=== PATIENT | female | born 2000 | race Caucasian/White ===

== ENCOUNTER 2018-03-11 10:05 | Emergency (ER) | payer OTHER ==
[~2018-03-11] VITALS: Ht 162.6 cm; Wt 81.6 kg
[2018-03-11] MEDS ORDERED: LACTATED RINGERS 1,000 ML IV ONE (10:26)
[2018-03-11] MEDS ORDERED: raNItidine 50 MG/2 ML INJ (ZANTAC) IV SCH (10:30)
[2018-03-11 10:35] LABS: BILIRUBIN,URINE NEGATIVE (NEGATIVE); CLARITY,URINE SLIGHTLY CLOUDY; COLOR,URINE YELLOW; GLUCOSE, URINE (UA) NEGATIVE (NEGATIVE); KETONES,URINE NEGATIVE (NEGATIVE); LEUKOCYTE ESTERASE ,URINE 1+ (NEGATIVE); NITRITE,URINE NEGATIVE (NEGATIVE); PH,URINE 8 (5-9); PROTEIN,URINE 1+ (NEGATIVE); UROBILINOGEN,URINE 1 MG/DL (NORMAL)
--- NOTE | 2018-03-11 10:40 | ED Abdominal Pain ---
General Chief Complaint: Abdominal/GI Problems Stated Complaint: VOMITING/STOMACH PAIN Nursing Triage Note: pt reports [place] hx of chronic pancreatitis and thinks she drank too much last night. Pt reports she has been vomiting since she got up this morning. Source of Information: Patient Exam Limitations: No Limitations History of Present Illness Date Seen by Provider: March 11, 2018 Time Seen by Provider: 10:20 Initial Comments Here with report of epigastric abdominal pain after drinking heavily last night. Reports that she has history of chronic pancreatitis. She states that usually that will go away after she vomits but today it's been worse. She does admit that she drink more last night and she has ever. She doesn't usually drink a lot. Denies diarrhea or fevers. Was concerned because she wasn't able to drink fluids today because she keeps vomiting. Timing/Duration: 4-6 Hours Severity/Quality: Moderate Location: Epigastric Radiation: No Radiation Activities at Onset: None Modifying Factors: Worsens With Eating Associated Symptoms: No Back Pain, No Chest Pain, No Fever/Chills; Heartburn, Nausea/Vomiting; No Shortness of Air, No Weakness Allergies and Home Medications Allergies Coded Allergies: No Known Drug Allergies (Unverified , 03/11/18) Home Medications No Active Prescriptions or Reported Meds Patient Home Medication List Home Medication List Reviewed: Yes Review of Systems Constitutional: see HPI; No chills, No fever EENTM: No Symptoms Reported Respiratory: No Symptoms Reported Cardiovascular: No Symptoms Reported Gastrointestinal: Abdominal Pain; Denies Diarrhea; Nausea, Vomiting Genitourinary: No Symptoms Reported Musculoskeletal: no symptoms reported Skin: no symptoms reported All Other Systems Reviewed Negative Unless Noted: Yes Past [id number] Hx Past Med/Social Hx: Reviewed Nursing Past Med/Soc Hx Patient Social History Alcohol Use: Occasionally Uses Alcohol Beverage of Choice: Beer Recreational Drug Use: No Smoking Status: Never a Smoker Recent Foreign Travel: No Contact w/Someone Who Travel: No Recent Infectious Disease Expo: No Physical Abuse: No Sexual Abuse: No Mistreated: No Fear: No Past Medical History Surgeries: No Respiratory: No Neurological: No Genitourinary: No Gastrointestinal: Yes (pancreatitis) Musculoskeletal: No Nursing Suicide Risk Score: 0 Family Medical History Reviewed Nursing Family Hx No Pertinent Family Hx Physical Exam Vital Signs Vital Signs - First Documented 03/11/18 10:15 Temp 96.8 Pulse 97 Resp 18 B/P (MAP) 142/83 Capillary Refill : General Appearance: WD/WN, no apparent distress HEENT: PERRL/EOMI, pharynx normal Neck: full range of motion, supple Respiratory: lungs clear, normal breath sounds Cardiovascular: regular rate, rhythm, no murmur Gastrointestinal: soft, tenderness (mild epigastric) Extremities: non-tender, normal inspection Back: normal inspection, no CVA tenderness, no vertebral tenderness Neurologic/Psychiatric: alert, normal mood/affect, oriented x 3 Skin: normal color, warm/dry Progress/Results/Core Measures Results/Orders Lab Results Laboratory Tests Test 03/11/18 10:28 03/11/18 10:34 Range/Units Urine Color YELLOW Urine Clarity SLIGHTLY CLOUDY Urine pH 8 5-9 Urine Specific [place] 1.010 L 1.016-1.022 Urine Protein 1+ H NEGATIVE Urine Glucose (UA) NEGATIVE NEGATIVE Urine Ketones NEGATIVE NEGATIVE Urine Nitrite NEGATIVE NEGATIVE Urine Bilirubin NEGATIVE NEGATIVE Urine Urobilinogen 1 NORMAL MG/DL Urine Leukocyte Esterase 1+ H NEGATIVE Urine RBC (Auto) NEGATIVE NEGATIVE Urine RBC RARE /HPF Urine WBC RARE /HPF Urine Squamous Epithelial Cells 10-25 H /HPF Urine Crystals NONE /LPF Urine Bacteria LARGE H /HPF Urine Casts NONE /LPF Urine Mucus NEGATIVE /LPF Urine Culture Indicated NO White Blood Count 7.5 4.3-11.0 10^3/uL Red Blood Count 4.26 L 4.35-5.85 10^6/uL Hemoglobin 13.6 11.5-16.0 G/DL Hematocrit 40 35-52 % Mean Corpuscular Volume 95 80-99 FL Mean Corpuscular Hemoglobin 32 25-34 PG Mean Corpuscular Hemoglobin Concent 34 32-36 G/DL Red Cell Distribution Width 12.4 10.0-14.5 % Platelet Count 249 130-400 10^3/uL Mean Platelet Volume 11.9 H 7.4-10.4 FL Neutrophils (%) (Auto) 80 H 42-75 % Lymphocytes (%) (Auto) 15 12-44 % Monocytes (%) (Auto) 4 0-12 % Eosinophils (%) (Auto) 0 0-10 % Basophils (%) (Auto) 0 0-10 % Neutrophils # (Auto) 6.0 1.8-7.8 X 10^3 Lymphocytes # (Auto) 1.1 1.0-4.0 X 10^3 Monocytes # (Auto) 0.3 0.0-1.0 X 10^3 Eosinophils # (Auto) 0.0 0.0-0.3 10^3/uL Basophils # (Auto) 0.0 0.0-0.1 10^3/uL Sodium Level 144 135-145 MMOL/L Potassium Level 4.2 3.6-5.0 MMOL/L Chloride Level 110 H 98-107 MMOL/L Carbon Dioxide Level 27 21-32 MMOL/L Anion Gap 7 5-14 MMOL/L Blood Urea Nitrogen 6 L 7-18 MG/DL Creatinine 0.75 0.60-1.30 MG/DL Estimat Glomerular Filtration Rate > 60 BUN/Creatinine Ratio 8 Glucose Level 92 70-105 MG/DL Calcium Level 9.3 8.5-10.1 MG/DL Total Bilirubin 0.4 0.1-1.0 MG/DL Aspartate Amino Transf (AST/SGOT) 20 5-34 U/L Alanine Aminotransferase (ALT/SGPT) 13 0-55 U/L Alkaline Phosphatase 68 40-136 U/L Total Protein 7.6 6.4-8.2 GM/DL Albumin 4.8 H 3.2-4.5 GM/DL Amylase Level 30 25-125 U/L Lipase 9 8-78 U/L My Orders Orders - ADAM BECKER MD Amylase (03/11/18 10:26) Cbc With Automated Diff (03/11/18 10:26) Comprehensive Metabolic Panel (03/11/18 10:26) Lipase (03/11/18 10:26) Ua Culture If Indicated (03/11/18 10:26) Lactated Ringers (Lr 1000 Ml Iv Solution (03/11/18 10:26) Ranitidine Injection (Zantac Injection) (03/11/18 10:30) Saline Lock/Iv-Start (03/11/18 10:26) Urine Bedside (03/11/18 10:26) Medications Given in ED Current Medications Medications Dose Ordered Sig/Kamran Route Start Time Stop Time Status Last Admin Dose Admin Lactated Ringer's 1,000 ml @ 0 mls/hr Q0M ONCE IV 03/11/18 10:26 03/11/18 10:28 DC 5/5/18 10:41 0 MLS/HR Vital Signs/I&O 03/11/18 10:15 Temp 96.8 Pulse 97 Resp 18 B/P (MAP) 142/83 Urine -Bedside: Negative Progress Progress Note : Progress Note Seen and evaluated. IV, labs, UA and UCG ordered. LR 1 L bolus and ranitidine 50 mg IV ordered. Monitor patient. 1210: No acute findings on labs here and she feels better after fluids and meds given earlier. Discharged home with return precautions. Patient verbalize understanding instructions and agreement with plan. Departure Impression Primary Impression: Gastritis Qualified Codes: K29.00 - Acute gastritis without bleeding Additional Impression: Nausea and vomiting Qualified Codes: R11.2 - Nausea with vomiting, unspecified Disposition: HOME, SELF-CARE Condition: Improved Departure-Patient Inst. Decision time for Depature: 12:19 Referrals: [facility] (PCP/Family) Primary Care Physician Patient Instructions: Acute Abdomen (Belly Pain), Adult (DC), Gastritis (DC) Add. Discharge Instructions: All discharge instructions reviewed with patient and/or family. Voiced understanding. Clear liquid diet for 24 hours and then advance as tolerated. Start very light with the diet including crackers, apple sauce and toast. Follow up with your Dr. in a few days for recheck. You should drink plenty of fluids. Return for worse pain, fever, vomiting, weakness, breathing problems, blood in your vomit or stool or other concerns as needed. You may take Pepcid (generic famotidine) or Zantac (generic ranitidine) [id number] meds twice daily for the next 3 days and then daily thereafter as needed for upset stomach. Avoid alcohol. Scripts Ondansetron (Ondansetron Odt) 4 Mg Tab.rapdis 4 MG PO Q6H PRN for NAUSEA/VOMITING, #8 TAB 0 Refills Prov: ADAM BECKER MD 03/11/18 Copy Copies To 1: GISELE HOGUE MD, TIMOTHY D MD March 11, 2018 10:40
[2018-03-11 10:41] LABS: BASOPHILS % (AUTO) 0 % (0-10); EOSINOPHILS % (AUTO) 0 % (0-10); HEMATOCRIT 40 % (35-52); HEMOGLOBIN 13.6 G/DL (11.5-16.0); LYMPHOCYTES # (AUTO) 1.1 X 10^3 (1.0-4.0); LYMPHOCYTES % (AUTO) 15 % (12-44); MEAN CORPUSCULAR HEMOGLOBIN 32 PG (25-34); MEAN CORPUSCULAR HGB CONC 34 G/DL (32-36); MEAN CORPUSCULAR VOLUME 95 FL (80-99); MEAN PLATELET VOLUME 11.9 FL (7.4-10.4); MONOCYTES # (AUTO) 0.3 X 10^3 (0.0-1.0); MONOCYTES % (AUTO) 4 % (0-12); NEUTROPHILS % (AUTO) 80 % (42-75); PLATELET COUNT 249 10^3/uL (130-400); RED BLOOD COUNT 4.26 10^6/uL (4.35-5.85); RED CELL DISTRIBUTION WIDTH 12.4 % (10.0-14.5); WHITE BLOOD COUNT 7.5 10^3/uL (4.3-11.0)
[2018-03-11 10:55] LABS: BACTERIA,URINE LARGE /HPF; RBC,URINE RARE /HPF; WBC,URINE RARE /HPF
[2018-03-11 10:59] LABS: ALANINE AMINOTRANSFERASE 13 U/L (0-55); ALBUMIN 4.8 GM/DL (3.2-4.5); ALKALINE PHOSPHATASE 68 U/L (40-136); AMYLASE 30 U/L (25-125); BILIRUBIN,TOTAL 0.4 MG/DL (0.1-1.0); BUN/CREATININE RATIO 8; CALCIUM 9.3 MG/DL (8.5-10.1); CARBON DIOXIDE 27 MMOL/L (21-32); CHLORIDE 110 MMOL/L (98-107); CREATININE SERUM 0.75 MG/DL (0.60-1.30); GFR ESTIMATED > 60; GLUCOSE 92 MG/DL (70-105); LIPASE 9 U/L (8-78); POTASSIUM 4.2 MMOL/L (3.6-5.0); SODIUM 144 MMOL/L (135-145); TOTAL PROTEIN 7.6 GM/DL (6.4-8.2)
[2018-03-11] MEDS ORDERED: ONDA4TAB11 PO (12:22)
== END 2018-03-11 12:39 | disposition home or self-care (01) ==
LOC: ER 10:08
DX: K29.70 Gastritis, unspecified, without bleeding (principal); Z87.19 Personal history of other diseases of the digestive system
CPT/HCPCS: 36415; 80053; 81000; 82150; 83690; 84703; 85025; 96361; 96374